=== PATIENT | male | born 1960 | race Caucasian/White ===

== ENCOUNTER 2017-07-06 12:39 | Inpatient (IN) ==
[2017-07-06] MEDS ORDERED: THIAMINE INJ 100 MG, FOLIC ACID INJ 1 MG, MAGNESIUM SULF INJ 2 GM, MULTIVITAMIN INJ 10 ... IV SCH (13:30)
[2017-07-06 13:48] LABS: Basophils % 0.5 % (0.0-0.8); Eosinophils % 0.5 % (0.00-10.9); Hematocrit 41.6 VOL% (42.0-52.0); Hemoglobin 14.7 GM/DL (14.0-18.0); Immature Granulocytes % 0.4 %; Immature Granulocytes Absolute 0.03 #; Lymphocytes % 13.3 % (21.2-54.2); Mean Corpuscular HGB Conc 35.3 GM/DL (32-36); Mean Corpuscular Hemoglobin 32 PG (27-34); Mean Corpuscular Volume 90.6 FL (87-102); Monocytes # 0.6 10*3/uL (0.11-0.8); Monocytes % 7.3 % (1.7-12.7); Platelet Count 99 T/CUMM (130-400); Red Blood Count 4.59 MC/CUMM (3.8-5.5); Red Cell Distribution Width 14.6 % (9.3-17.3); White Blood Count 7.7 T/CUMM (4-12)
[2017-07-06 14:04] LABS: Albumin 3.5 G/DL (3.4-5.0); Bilirubin,Total 1.1 MG/DL (0.2-1.0); Calcium 7.7 MG/DL (8.5-10.1); Osmolality,Calculated 246.8 MOS/KG (273-304); Potassium 2.6 MMOL/L (3.5-5.1); Total Protein 7.3 G/DL (6.4-8.3)
[2017-07-06] MEDS ORDERED: POTASSIUM CHLORIDE 20 MEQ TABLET PO STA (14:07)
[2017-07-06] MEDS ORDERED: SODIUM CHLOR 0.45% KCL 20 MEQ 20 MEQ/1,000 ML BAG IV SCH (14:30)
[2017-07-06] MEDS ORDERED: POTASSIUM CHLORIDE IV SCH (15:00)
[2017-07-06] MEDS ORDERED: SODIUM CHLORIDE 0.45% IV SCH (15:00)
[2017-07-06 15:08] LABS: Barbiturates Screen,Urine Negative (Negative); Benzodiazepines Screen,Urine Negative (Negative); Cannabinoid Screen,Urine Negative (Negative); Opiate Screen,Urine Negative (Negative); Phencyclidine Screen,Urine Negative (Negative)
[2017-07-06] MEDS ORDERED: POTASSIUM CHLORIDE 20 MEQ TABLET PO ONE (15:15)
[2017-07-06] MEDS ORDERED: ONDANSETRON 4 MG/2 ML VIAL IV PRN (17:57)
[2017-07-06] MEDS ORDERED: ACETAMINOPHEN 325 MG TABLET PO PRN (17:57)
[2017-07-06] MEDS: LORazepam 2 MG/1 ML VIAL IV SCH ×2 (18:24→22:23)
[2017-07-06] MEDS ORDERED: POTASSIUM CHLORIDE RIDER 10 MEQ in PREMIX 1 EACH IV ONE (20:00)
[2017-07-06] MEDS ORDERED: MAGNESIUM SULF RIDER 2 GM in PREMIX 1 EACH IV ONE (21:30)
[2017-07-06] MEDS: POTASSIUM CHLORIDE 20 MEQ TABLET PO PRN ×2 (21:42→23:54)
[2017-07-06] MEDS: DOCUSATE SODIUM 100 MG CAPSULE PO SCH (21:48)
[2017-07-06 22:08] LABS: Calcium 7.3 MG/DL (8.5-10.1); Osmolality,Calculated 260.8 MOS/KG (273-304); Potassium 2.7 MMOL/L (3.5-5.1)
[2017-07-07] MEDS: POTASSIUM CHLORIDE 20 MEQ TABLET PO PRN ×6 (01:26→12:23)
[2017-07-07] MEDS: SODIUM CHLORIDE 0.9% 1,000 ML IV SCH ×4 (02:33→18:31)
[2017-07-07] MEDS: LORazepam 2 MG/1 ML VIAL IV SCH ×6 (02:34→22:44)
[2017-07-07 04:48] LABS: Basophils % 0.2 % (0.0-0.8); Eosinophils % 0.9 % (0.00-10.9); Hematocrit 38.8 VOL% (42.0-52.0); Hemoglobin 13.8 GM/DL (14.0-18.0); Immature Granulocytes % 0.4 %; Immature Granulocytes Absolute 0.02 #; Lymphocytes # 0.7 10*3/uL (1.4-4.0); Lymphocytes % 15.6 % (21.2-54.2); Mean Corpuscular HGB Conc 35.6 GM/DL (32-36); Mean Corpuscular Hemoglobin 32 PG (27-34); Mean Corpuscular Volume 90.4 FL (87-102); Mean Platelet Volume 10.7 FL (9.6-12.0); Monocytes # 0.4 10*3/uL (0.11-0.8); Neutrophils # 3.4 10*3/uL (1.4-7.4); Neutrophils % 73.9 % (38.7-73.9); Platelet Count 94 T/CUMM (130-400); Red Blood Count 4.29 MC/CUMM (3.8-5.5); White Blood Count 4.6 T/CUMM (4-12)
[2017-07-07 05:06] LABS: Calcium 7.5 MG/DL (8.5-10.1); Osmolality,Calculated 262.5 MOS/KG (273-304); Potassium 3.2 MMOL/L (3.5-5.1)
[2017-07-07 05:11] LABS: Albumin 3.2 G/DL (3.4-5.0); Bilirubin,Total 2.3 MG/DL (0.2-1.0); Calcium 7.5 MG/DL (8.5-10.1); Osmolality,Calculated 262.5 MOS/KG (273-304); Potassium 3.2 MMOL/L (3.5-5.1); Risk Ratio 1.76; Total Protein 6.1 G/DL (6.4-8.3); VLDL CHOLESTEROL 14.6 MG/DL
[2017-07-07 05:49] LABS: Hypochromasia 1+; Platelet Estimate Decreased
[2017-07-07] MEDS: PANTOPRAZOLE 40 MG TABLET PO SCH (08:20)
[2017-07-07] MEDS: DOCUSATE SODIUM 100 MG CAPSULE PO SCH ×2 (08:21→20:59)
[2017-07-07] MEDS: POTASSIUM CHLORIDE 20 MEQ TABLET PO SCH (09:44)
[2017-07-07] MEDS ORDERED: FUROSEMIDE 20 MG/2 ML VIAL IV ONE (12:04)
[2017-07-08] MEDS: LORazepam 2 MG/1 ML VIAL IV SCH ×6 (02:37→21:39)
[2017-07-08] MEDS: SODIUM CHLORIDE 0.9% 1,000 ML IV SCH ×4 (02:42→19:30)
[2017-07-08 06:27] LABS: Albumin 3.2 G/DL (3.4-5.0); Bilirubin,Total 0.8 MG/DL (0.2-1.0); Calcium 7.8 MG/DL (8.5-10.1); Osmolality,Calculated 278.3 MOS/KG (273-304); Total Protein 6.2 G/DL (6.4-8.3)
[2017-07-08] MEDS: MULTIVITAMIN (CENTRUM) TABLET PO SCH (08:26)
[2017-07-08] MEDS: PANTOPRAZOLE 40 MG TABLET PO SCH (08:26)
[2017-07-08] MEDS: POTASSIUM CHLORIDE 20 MEQ TABLET PO SCH (08:26)
[2017-07-08] MEDS: THIAMINE 100 MG TABLET PO SCH (08:26)
[2017-07-08] MEDS: DOCUSATE SODIUM 100 MG CAPSULE PO SCH ×2 (08:26→21:45)
[2017-07-08] MEDS ORDERED: FUROSEMIDE 20 MG/2 ML VIAL IV SCH (09:00)
[2017-07-09] MEDS ORDERED: LORazepam 2 MG/1 ML VIAL IV SCH (03:00)
[2017-07-09 06:01] LABS: Albumin 3.4 G/DL (3.4-5.0); Calcium 7.5 MG/DL (8.5-10.1); Osmolality,Calculated 274.5 MOS/KG (273-304); Potassium 4.1 MMOL/L (3.5-5.1); Total Protein 6.6 G/DL (6.4-8.3)
[2017-07-09] MEDS ORDERED: cloNIDine 0.1 MG TABLET PO SCH ×2 (08:00→18:00)
[2017-07-09] MEDS: MULTIVITAMIN (CENTRUM) TABLET PO SCH (09:12)
[2017-07-09] MEDS: DOCUSATE SODIUM 100 MG CAPSULE PO SCH (09:12)
[2017-07-09] MEDS: LORazepam 1 MG TABLET PO SCH ×3 (09:12→20:44)
[2017-07-09] MEDS: LOSARTAN 50 MG TABLET PO SCH (09:12)
[2017-07-09] MEDS: PANTOPRAZOLE 40 MG TABLET PO SCH (09:12)
[2017-07-09] MEDS: THIAMINE 100 MG TABLET PO SCH (09:12)
[2017-07-09] MEDS: cloNIDine 0.1 MG TABLET PO PRN ×2 (09:12→16:30)
[2017-07-09] MEDS ORDERED: cloNIDine 0.1 MG TABLET PO PRN (18:16)
[2017-07-09] MEDS ORDERED: LOSARTAN 50 MG TABLET PO ONE (18:30)
[2017-07-10] MEDS: DOCUSATE SODIUM 100 MG CAPSULE PO SCH ×2 (05:32→09:39)
[2017-07-10 05:50] LABS: Albumin 3.2 G/DL (3.4-5.0); Bilirubin,Total 0.5 MG/DL (0.2-1.0); Calcium 7.9 MG/DL (8.5-10.1); Osmolality,Calculated 275.5 MOS/KG (273-304); Potassium 3.8 MMOL/L (3.5-5.1); Total Protein 6.5 G/DL (6.4-8.3)
[2017-07-10 07:52] VITALS: BP 157/89
[2017-07-10] MEDS ORDERED: amLODIPine 5 MG TABLET PO SCH (09:00)
[2017-07-10] MEDS: MULTIVITAMIN (CENTRUM) TABLET PO SCH (09:38)
[2017-07-10] MEDS: LORazepam 1 MG TABLET PO SCH (09:38)
[2017-07-10] MEDS: THIAMINE 100 MG TABLET PO SCH (09:38)
[2017-07-10] MEDS: PANTOPRAZOLE 40 MG TABLET PO SCH (09:38)
[2017-07-10] MEDS: LOSARTAN 50 MG TABLET PO SCH (09:39)
== END 2017-07-10 10:45 | DRG 897 ==
LOC: N.ED 12:39 → N.EDINP 12:39 → N.TELES 17:50
PROVIDERS: ADMIT Family Medicine; ATTEND Family Medicine